=== PATIENT | male | born 1945 | race Caucasian/White ===

== ENCOUNTER 2024-07-04 06:44 | Emergency (ER) | payer OTHER, SELFPAY ==
[2024-07-04 07:00] LABS: Absolute Eosinophils 0.3 K/uL (0-0.5); Absolute Lymphocytes (CBC) 1.5 K/uL (0.7-4.9); Absolute Monocytes 0.5 K/uL (0.1-1.3); Absolute Neutrophil 3.7 K/uL (1.8-8.0); Basophils % 0.2 % (0-1.3); Eosinophils % 5.1 % (0-4.4); Hematocrit 39.2 % (39.6-49.0); Hemoglobin 12.8 g/dL (13.6-17.9); Lymphocytes % 24.6 % (15.3-44.8); MCH 30.3 pg (27.0-35.0); MCHC 32.7 g/dL (32.0-36.0); MCV 92.7 fL (80-100); MPV 9.7 fL (7.6-11.3); Monocytes % 8.5 % (3.3-12.3); Neutrophils % 61.6 % (41.7-73.7); Platelets 231 thou/uL (152-406); RBC Red Blood Cell Count 4.23 M/uL (4.33-5.43); Red Cell Distribution Width 13.2 % (12.1-15.2)
[2024-07-04 07:06] LABS: PTT, Activated Partial Thromb 38.1 SECONDS (24.3-36.9); Protime INR 0.98
[2024-07-04] MEDS ORDERED: TENECTEPLASE 50 MG/10 ML VIAL IV ONE (07:13)
[2024-07-04 07:21] LABS: Albumin 3.6 g/dL (3.4-5.0); Anion Gap 6.5 mEq/L (5.0-15.0); Bilirubin Direct 0.2 mg/dL (0-0.2); Bilirubin Indirect, Calculated 0.3 mg/dL (0.2-0.8); Bilirubin Total 0.5 mg/dL (0.2-1.0); Globulin 3.6 g/dL (2.3-3.5); Magnesium 2.1 mg/dL (1.6-2.4); Potassium 3.5 mEq/L (3.5-5.1); Protein, Total 7.2 g/dL (6.4-8.2); Troponin High Sensitivity 6.2 pg/mL (<58.9)
--- NOTE | 2024-07-04 07:28 | RAD REPORT ---
CT HEAD WITHOUT IV CONTRAST INDICATION: STROKE ALERT. COMPARISON: None TECHNIQUE: CT images of the head were obtained without contrast. Multiplanar reformats were provided. Dose lowering techniques such as automated exposure control, iterative reconstruction, and mA and/or kV adjustment for patient size was utilized for this examination. FINDINGS: VENTRICLES: Normal in size for patient's age. EXTRA-AXIAL: No focal collection. Patent basilar cisterns. ORBITS: Unremarkable. BONES: No acute finding. PARANASAL SINUSES/MASTOIDS/MIDDLE EARS: Clear. SOFT TISSUES: No acute findings. OTHER: None. IMPRESSION: No acute intracranial abnormality. Electronically signed by: Chrissy Lucas MD 07/04/2024 07:24 AM CDT RP Due to temporary technical issues with the PACS/[employer] reporting system, reports are being radha d by the in-house radiologist without review as a courtesy to ensure prompt reporting the interpreting radiologist is fully responsible for the content of the report. Transcribed Date/Time: 07/04/2024 7:27 AM
[2024-07-04] MEDS ORDERED: FOLIC ACID 5 MG/ML VIAL ONE (07:30)
[2024-07-04] MEDS ORDERED: NA CHLORIDE 0.9% 1,000 ML ONE (07:30)
--- NOTE | 2024-07-04 07:31 | RAD REPORT ---
EXAMINATION: ONE VIEW CHEST XR CLINICAL INDICATION: cva TECHNIQUE: Frontal chest projection is submitted. Examination is limited by patient positioning and t echnique. COMPARISON: No prior exam. FINDINGS: The lungs are well inflated and clear. The heart is normal in size. No displaced fractures identified . IMPRESSION: No acute intrathoracic abnormalities.
--- NOTE | 2024-07-04 07:34 | EDPHYS ---
Physician Documentation [facility] Name: Domingo Sheridan Age: 79 yrs Sex: Male : 1945 Arrival Date: 07/04/2024 Time: 06:44 Bed 2 Private MD: ED Physician Narayan Sargent HPI: 07/04 06:50 This 76 yrs old Male presents to ER via Unassigned with complaints of CVA. rt 06:50 Patient presents to the ED with concerns for acute CVA. Patient woke up at 4 this rt morning, had no neurologic deficits. Subsequent back to bed, woke up at about 530 and noted that he had total paralysis of the right arm as well as a facial droop. Denies other acute complaints at this time. Denies other aggravating relieving factors, symptoms are moderate in severity. Historical: - Allergies: 07:03 No Known Allergies; bm8 - Home Meds: 07:03 Lisinopril Oral [Active]; bm8 - PMHx: 07:03 Hypertensive disorder; TIA; bm8 - Immunization history:: Adult Immunizations up to date. - Infectious Disease History:: Denies. - Social history:: Smoking status: Patient denies any tobacco usage or history of. ROS: 06:50 Constitutional: Negative for fever, chills, and weight loss, Cardiovascular: Negative rt for chest pain, palpitations, and edema, Respiratory: Negative for shortness of breath, cough, wheezing, and pleuritic chest pain, Abdomen/GI: Negative for abdominal pain, nausea, vomiting, diarrhea, and constipation, Skin: Negative for injury, rash, and discoloration, 06:50 Neuro: Positive for weakness, Negative for loss of consciousness, numbness, Exam: 06:50 Constitutional: This is a well developed, well nourished patient who is awake, alert, rt and in no acute distress. Head/Face: Normocephalic, atraumatic. Chest/axilla: Normal chest wall appearance and motion. Nontender with no deformity. No lesions are appreciated. Cardiovascular: Regular rate and rhythm with a normal S1 and S2. No gallops, murmurs, or rubs. Normal PMI, no JVD. No pulse deficits. Respiratory: Lungs have equal breath sounds bilaterally, clear to auscultation and percussion. No rales, rhonchi or wheezes noted. No increased work of breathing, no retractions or nasal flaring. Abdomen/GI: Soft, non-tender, with normal bowel sounds. No distension or tympany. No guarding or rebound. No evidence of tenderness throughout. Skin: Warm, dry with normal turgor. Normal color with no rashes, no lesions, and no evidence of cellulitis. MS/ Extremity: Pulses equal, no cyanosis. Neurovascular intact. Full, normal range of motion. 06:50 Neuro: Speech normal, right-sided facial droop, no other cranial nerve deficits, paralysis of the right upper extremity, sensation is intact, no other weakness, numbness noted, 07:04 ECG was reviewed by the Attending Physician. rt Vital Signs: 06:45 BP 140 / 96; Pulse 70; Resp 13; Temp 97.8; Pulse Ox 98% on R/A; Weight 112.49 kg; bm8 Height 6 ft. 1 in. ; Pain 0/10; 07:30 BP 165 / 92; Pulse 71; Resp 18; Pulse Ox 98% on R/A; ph 08:02 BP 154 / 92; Pulse 64; Resp 18; Pulse Ox 98% on R/A; ph 08:30 BP 143 / 94; Pulse 68; Resp 18; Pulse Ox 99% on R/A; ph 09:00 BP 137 / 96; Pulse 69; Resp 18; Temp 97.5; Pulse Ox 98% on R/A; ph 06:45 Body Mass Index 32.72 (112.49 kg, 185.42 cm) bm8 06:45 Pain Scale: Adult bm8 NIH Stroke Scale Scores: 07:05 NIHSS Score: 2 ph 07:29 NIHSS Score: 4 taran 07:59 NIHSS Score: 2 ph Elmo Coma Score: 07:29 Eye Response: spontaneous(4). Motor Response: obeys commands(6). Verbal Response: taran oriented(5). Total: 15. MDM: 06:49 Patient medically screened. rt 07:06 Differential diagnosis: CVA, TIA, intracranial hemorrhage. Data reviewed: vital signs, rt nurses notes. I considered the following discharge prescriptions or medication management in the emergency department Medications were administered in the Emergency Department. See MAR. Independent interpretation of the following test(s) in the Emergency Department CT Scan: My interpretation is No intracranial hemorrhage seen on my interpretation of CT scan images. Care significantly affected by the following chronic conditions: Hypertension. Counseling: I had a detailed discussion with the patient and/or guardian regarding the historical points, exam findings, and any diagnostic results supporting the discharge/admit diagnosis, lab results, radiology results. ED course: TNKase was delayed due to delay in reporting of CT scan results. 07/04 06:49 Order name: Basic Metabolic Panel; Complete Time: 07:25 rt 07/04 06:49 Order name: CBC with Diff; Complete Time: 07:21 rt 07/04 06:49 Order name: Hepatic Function; Complete Time: 07:25 rt 07/04 06:49 Order name: High Sensitivity Troponin; Complete Time: 07:25 rt 07/04 06:49 Order name: Magnesium; Complete Time: 07:25 rt 07/04 06:49 Order name: Protime (+inr); Complete Time: 07:21 rt 07/04 06:49 Order name: Ptt, Activated; Complete Time: 07:21 rt 07/04 06:52 Order name: glucometer results - FOR PT WITH NO ID; Complete Time: 07:52 bm8 07/04 06:49 Order name: CT Neck Angio; Complete Time: 08:02 rt 07/04 06:49 Order name: CT Stroke Brain w/o Contrast; Complete Time: 07:52 rt 07/04 06:49 Order name: Stroke CXR 1 View; Complete Time: 07:52 rt 07/04 06:59 Order name: Head angio; Complete Time: 07:52 EDMS 07/04 06:49 Order name: Accucheck; Complete Time: 06:53 rt 07/04 06:49 Order name: Cardiac monitoring; Complete Time: 06:53 rt 07/04 06:49 Order name: EKG - Nurse/Tech; Complete Time: 06:53 rt 07/04 06:49 Order name: IV Saline Lock; Complete Time: 06:53 rt 07/04 06:49 Order name: Labs collected and sent; Complete Time: 06:53 rt 07/04 06:49 Order name: NPO; Complete Time: 06:53 rt 07/04 06:49 Order name: O2 Per Protocol; Complete Time: 06:53 rt 07/04 06:49 Order name: O2 Sat Monitoring; Complete Time: 06:53 rt 07/04 06:49 Order name: Stroke Swallow Screen; Complete Time: 07:06 rt EC:04 Rate is 82 beats/min. 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 Left axis deviation noted. CO interval is prolonged at 222 msec. QRS interval is normal. QT interval is normal. No Q waves. No ST changes noted. Interpreted by me. Administered Medications: 07:15 Drug: TNK FOR STROKE - Tenecteplase IV (Administer 10 ml NS flush BEFORE and bm8 AFTER tenecteplase) 25 mg IV at per protocol once; 0.25mg/kg, MAX DOSE 25 mg, IVP over 5 seconds {Co-Signature: lg3 (Loren Avendaño RN).} Route: IV; Rate: per protocol; Site: left antecubital; 07:20 Follow up: Response: No adverse reaction; IV Status: Completed infusion ph 08:01 Drug: foLIC Acid IVPB 1 mg IVPB once Route: IVPB; Site: right antecubital; ph 09:13 Follow up: Response: No adverse reaction; IV Status: Completed infusion ph 08:01 Drug: NS 0.9% IV 1000 ml IV at 1 bolus Per protocol; 1000 mL bolus Route: IV; Rate: 1 ph bolus; Site: right antecubital; 09:13 Follow up: Response: No adverse reaction; IV Status: Completed infusion; IV Intake: ph 1000ml Point of Care Testing: Blood Glucose: 06:36 Blood Glucose: 145 mg/dL; bm8 Ranges: Critical Glucose Levels:Adult <50 mg/dl or >400 mg/dl <40 mg/dl or >180 mg/dl Disposition Summary: 07/04/24 07:34 Transfer Ordered Notes: Transfer Location: [facility] taran Reason: Higher level of care taran Condition: Fair taran Problem: new taran Symptoms: have improved taran Accepting Physician: to [facility](07/04/24 09:16) ph Diagnosis - Essential (primary) hypertension taran - Cerebral infarction, unspecified - acute taran Forms: - Medication Reconciliation Form taran - SBAR form taran NIH Stroke Scale - NIH Stroke Score Date: 07/04/2024 Time: 07:05 Total Score = 2 10. Dysarthria (speech clarity - read or repeat words) - 0(Normal) 11. Extinction and Inattention (visual/tactile/auditory/spatial/personal) - 0(No abnormality) 1a. Level of Consciousness (LOC) - 0(Alert) 1b. Level of Consciousness (LOC) (Month \T\ Age) - 0(Both) 1c. LOC Commands (Open \T\ Closes Eyes/Road Roller Operator Hot Mix) - 0(Both) 2. Best Gaze (Lateral Gaze Paresis) - 0(Normal) 3. Visual Field Loss - 0(No visual loss) 4. Facial Palsy - 1(Minor Paralysis) 5a. Left Arm: Motor (10-second hold) - 0(No drift) 5b. Right Arm: Motor (10-second hold) - 1(Drift) 6a. Left Leg: Motor (5-second hold - always test supine) - 0(No drift) 6b. Right Leg: Motor (5-second hold - always test supine) - 0(No drift) 7. Limb Ataxia (finger/nose \T\ heel/kelley - test with eyes open) - 0(Absent) 8. Sensory Loss (pinprick arms/legs/face) - 0(Normal) 9. Best Language: Aphasia (description/naming/reading) - 0(No aphasia) Initials: NIH Stroke Scale - NIH Stroke Score Date: 07/04/2024 Time: 07:29 Total Score = 4 10. Dysarthria (speech clarity - read or repeat words) - 0(Normal) 11. Extinction and Inattention (visual/tactile/auditory/spatial/personal) - 0(No abnormality) 1a. Level of Consciousness (LOC) - 0(Alert) 1b. Level of Consciousness (LOC) (Month \T\ Age) - 0(Both) 1c. LOC Commands (Open \T\ Closes Eyes/Road Roller Operator Hot Mix) - 0(Both) 2. Best Gaze (Lateral Gaze Paresis) - 0(Normal) 3. Visual Field Loss - 0(No visual loss) 4. Facial Palsy - 0(Normal) 5a. Left Arm: Motor (10-second hold) - 0(No drift) 5b. Right Arm: Motor (10-second hold) - 3(No effort against gravity) 6a. Left Leg: Motor (5-second hold - always test supine) - 0(No drift) 6b. Right Leg: Motor (5-second hold - always test supine) - 0(No drift) 7. Limb Ataxia (finger/nose \T\ heel/kelley - test with eyes open) - 1(Present in one limb) 8. Sensory Loss (pinprick arms/legs/face) - 0(Normal) 9. Best Language: Aphasia (description/naming/reading) - 0(No aphasia) Initials: taran NIH Stroke Scale - NIH Stroke Score Date: 07/04/2024 Time: 07:59 Total Score = 2 10. Dysarthria (speech clarity - read or repeat words) - 0(Normal) 11. Extinction and Inattention (visual/tactile/auditory/spatial/personal) - 0(No abnormality) 1a. Level of Consciousness (LOC) - 0(Alert) 1b. Level of Consciousness (LOC) (Month \T\ Age) - 0(Both) 1c. LOC Commands (Open \T\ Closes Eyes/Road Roller Operator Hot Mix) - 0(Both) 2. Best Gaze (Lateral Gaze Paresis) - 0(Normal) 3. Visual Field Loss - 0(No visual loss) 4. Facial Palsy - 1(Minor Paralysis) 5a. Left Arm: Motor (10-second hold) - 0(No drift) 5b. Right Arm: Motor (10-second hold) - 1(Drift) 6a. Left Leg: Motor (5-second hold - always test supine) - 0(No drift) 6b. Right Leg: Motor (5-second hold - always test supine) - 0(No drift) 7. Limb Ataxia (finger/nose \T\ heel/kelley - test with eyes open) - 0(Absent) 8. Sensory Loss (pinprick arms/legs/face) - 0(Normal) 9. Best Language: Aphasia (description/naming/reading) - 0(No aphasia) Initials: ph Signatures: Dispatcher [employer] EDMS Narayan Sargent MD MD cha Hall, Patricia RN RN Jimi Canchola MD MD rt Stalin Ramirez, RN RN [id number] Loren Avendaño RN [id number] Corrections: (The following items were deleted from the chart) 06:49 06:49 BASIC METABOLIC PANEL+C.LAB.BRZ ordered. EDMS EDMS 06:49 06:49 CBC+H.LAB.BRZ ordered. EDMS EDMS 06:49 06:49 HEPATIC FUNCTION+C.LAB.BRZ ordered. EDMS EDMS 06:49 06:49 Troponin High Sensitivity+C.LAB.BRZ ordered. EDMS EDMS 06:49 06:49 MAGNESIUM+C.LAB.BRZ ordered. EDMS EDMS 06:49 06:49 PROTIME (+INR)+COAG.LAB.BRZ ordered. EDMS EDMS 06:49 06:49 PTT, ACTIVATED+COAG.LAB.BRZ ordered. EDMS EDMS 06:50 06:50 Neck Angio+CT.RAD.BRZ ordered. EDMS EDMS 06:50 06:50 CT-STROKE BRAIN W/O CONTRAST+CT.RAD.BRZ ordered. EDMS EDMS 06:50 06:50 Chest Single View+RAD.RAD.BRZ ordered. EDMS EDMS 09:16 07:[address] [facility] ph
--- NOTE | 2024-07-04 07:34 | ER ---
Nurse's Notes [facility] Name: Domingo Sheridan Age: 79 yrs Sex: Male : 1945 Arrival Date: 07/04/2024 Time: 06:44 Bed 2 Private MD: Diagnosis: Essential (primary) hypertension;Cerebral infarction, unspecified-acute Presentation: 07/04 06:36 Chief complaint: Patient states: I woke up and had weakness on my right side. bm8 Coronavirus screen: At this time, the client does not indicate any symptoms associated with coronavirus-19. Ebola Screen: Patient negative for fever greater than or equal to 101.5 degrees Fahrenheit, and additional compatible Ebola Virus Disease symptoms Patient denies exposure to infectious person. Patient denies travel to an Ebola-affected area in the 21 days before illness onset. No symptoms or risks identified at this time. An acute neurological deficit is present. The charge nurse has been notified. The patients blood glucose was checked before arriving to the hospital and was found to be normal. Initial Sepsis Screen: Does the patient meet any 2 criteria? No. Patient's initial sepsis screen is negative. Does the patient have a suspected source of infection? No. Patient's initial sepsis screen is negative. Risk Assessment: Do you want to hurt yourself or someone else? Patient reports no desire to harm self or others. Onset of symptoms was July 04, 2024 at 05:30. 06:36 Method Of Arrival: EMS: [facility]8 06:36 Acuity: KAYLEE 2 bm8 Triage Assessment: 06:36 The onset of the patients symptoms was less than three hours ago. General: Appears in bm8 no apparent distress. comfortable, Behavior is calm, cooperative, appropriate for age. 06:36 Pain: Denies pain. EENT: No deficits noted. No signs and/or symptoms were reported bm8 regarding the EENT system. 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 Full function Speech is normal, Facial droop on right, Pupils are PERRLA, Pupil Size: 3mm Intact Reports weakness in right arm. Cardiovascular: No deficits noted. Denies chest pain, Heart tones S1 S2 present Capillary refill < 3 seconds in bilateral fingers toes Patient's skin is warm and dry. Respiratory: Airway is patent Respiratory effort is even, unlabored, Respiratory pattern is regular, symmetrical, Breath sounds are clear bilaterally. GI: No signs and/or symptoms were reported involving the gastrointestinal system. : No signs and/or symptoms were reported regarding the genitourinary system. Derm: No signs and/or symptoms reported regarding the dermatologic system. Musculoskeletal: Reports weakness in right arm. Stroke Activation: Physician: ED Attending; Name: MEGHAN; Notified At: 06:36; Arrived At: 06:36 Physician: Mid-Level Provider; Name: ; Notified At: 06:36; Arrived At: Physician: [not used]; Name: ; Notified At: ; Arrived At: Physician: [not used]; Name: ; Notified At: ; Arrived At: Physician: [not used]; Name: ; Notified At: ; Arrived At: Historical: - Allergies: 07:03 No Known Allergies; bm8 - Home Meds: 07:03 Lisinopril Oral [Active]; bm8 - PMHx: 07:03 Hypertensive disorder; TIA; bm8 - Immunization history:: Adult Immunizations up to date. - Infectious Disease History:: Denies. - Social history:: Smoking status: Patient denies any tobacco usage or history of. Screenin:55 [place] Swallow Protocol Exclusion Criteria: Unable to remain alert for testing: No NPO bm8 for medical/surgical reason by provider order No Head-of-bed restricted <30 degrees Tracheostomy tube present No No thin liquids due to preexisting dysphagia/baseline modified diet thickened liquids No Exclusion Criteria Result: Proceed Brief Cognitive Screen What is your name? Normal, Where are you right now? Normal, What year is it? Normal. Oral Mechanism Examination Facial Symmetry: Normal, Motion: Normal, Lip Closure: Normal, Oral Mechanism Result: Normal. 07:07 Leigh Ann Swallow Protocol Exclusion Criteria: Exclusion Criteria Result: Proceed Brief vc1 Cognitive Screen What is your name? Normal, Where are you right now? Normal, What year is it? Normal. Oral Mechanism Examination Facial Symmetry: Normal, Motion: Normal, Lip Closure: Normal, Oral Mechanism Result: Normal. 3 oz Water Swallow Challenge: Pt able to drink all water without stopping, coughing, choking or throat clearing: Yes Result: PASS Notified: Jimi Ferrell MD. 07:07 [facility] ED Fall Risk Assessment (Adult) History of falling in the last 3 months, bm8 including since admission No falls in past 3 months (0 pts) Confusion or Disorientation No (0 pts) Intoxicated or Sedated No (0 pts) Impaired Gait No (0 pts) Mobility Assist Device Used No (0 pt) Altered Elimination No (0 pt) Score/Fall Risk Level 0 - 2 = Low Risk Oriented to surroundings, Maintained a safe environment, Educated pt \T\ family on fall prevention, incl call for assistance when getting out of bed, Assessed \T\ reinforced patient's understanding of fall precautions, Hourly rounding (assess needs \T\ fall precautionary measures) done, Used ambulatory aids as needed (educated on \T\ assisted with), Used gait belt as appropriate. Abuse screen: Denies threats or abuse. Nutritional screening: No deficits noted. Tuberculosis screening: No symptoms or risk factors identified. VAN Screening: Arm Drift: Minor drift. Visual Disturbance: No visual disturbance noted. Aphasia: No aphasia noted. Neglect: No neglect noted. Assessment: 07:05 VAN Scoring: Arm Drift: Minor drift Visual Disturbance: No visual disturbance noted. ph Aphasia: No aphasia noted. Neglect: No neglect noted. General: Appears in no apparent distress. comfortable, well groomed, Behavior is calm, cooperative, appropriate for age. Pain: Denies pain. Neuro: Level of Consciousness is awake, alert, obeys commands, Oriented to person, place, time, situation, Commodity Specialist are weak on right Speech is normal, Facial droop on right. Cardiovascular: Capillary refill < 3 seconds in bilateral fingers Patient's skin is warm and dry. Rhythm is sinus rhythm. Respiratory: Airway is patent Respiratory effort is even, unlabored. Derm: Skin is pink, warm \T\ dry. 08:26 Reassessment: Report called to ROSITA Arenas at [facility]. 09:11 Reassessment: Patient appears in no apparent distress at this time. Patient and/or ph family updated on plan of care and expected duration. Pain level reassessed. Patient is alert, oriented x 3, equal unlabored respirations, skin warm/dry/pink. [facility] at bedside, report given to Jose PIERSON-P, pt transferred to [facility]. Vital Signs: 06:45 BP 140 / 96; Pulse 70; Resp 13; Temp 97.8; Pulse Ox 98% on R/A; Weight 112.49 kg; bm8 Height 6 ft. 1 in. ; Pain 0/10; 07:30 BP 165 / 92; Pulse 71; Resp 18; Pulse Ox 98% on R/A; ph 08:02 BP 154 / 92; Pulse 64; Resp 18; Pulse Ox 98% on R/A; ph 08:30 BP 143 / 94; Pulse 68; Resp 18; Pulse Ox 99% on R/A; ph 09:00 BP 137 / 96; Pulse 69; Resp 18; Temp 97.5; Pulse Ox 98% on R/A; ph 06:45 Body Mass Index 32.72 (112.49 kg, 185.42 cm) bm8 06:45 Pain Scale: Adult bm8 Stafford Coma Score: 07:29 Eye Response: spontaneous(4). Motor Response: obeys commands(6). Verbal Response: taran oriented(5). Total: 15. NIH Stroke Scale Scores: 07:05 NIHSS Score: 2 ph 07:29 NIHSS Score: 4 taran 07:59 NIHSS Score: 2 ph ED Course: 06:36 Arm band placed on right wrist. bm8 06:49 Patient arrived in ED. bm8 06:49 Jimi Ferrell MD is Attending Physician. rt 06:52 Initial lab(s) drawn, by ED staff, sent to lab. Inserted saline lock: 20 gauge in left lg3 antecubital area, using aseptic technique. Blood collected. 06:55 Inserted saline lock: 20 gauge in right antecubital area, using aseptic technique. lg3 06:55 No provider procedures requiring assistance completed. Patient maintains SpO2 bm8 saturation greater than 95% on room air. 06:55 Patient has correct armband on for positive identification. Placed in gown. Bed in low bm8 position. Call light in reach. Side rails up X2. Client placed on continuous cardiac and pulse oximetry monitoring. NIBP monitoring applied. patient monitor on. Pulse ox on. NIBP on. Door closed. Noise minimized. Warm blanket given. Pillow given. Verbal reassurance given. Head of bed elevated. 06:57 CT Stroke Brain w/o Contrast In Process Unspecified. EDMS 07:00 Stalin Ramirez, RN is Primary Nurse. bm8 07:03 Triage completed. bm8 07:15 Report given to ROSITA SCHMIDT. bm8 07:17 Stroke CXR 1 View In Process Unspecified. EDMS 07:18 pt accepted in transfer to [facility] by dr garcia admin approval given by pranav Fatima pt going to rm 7 [address] 4 rm [id number]. 07:21 Attending Physician role handed off by Jimi Ferrell MD taran 07:21 Narayan Sargent MD is Attending Physician. taran 07:22 initiated transfer to [facility]. bd 07:[address] via stretcher. db 07:42 CT Neck Angio In Process Unspecified. EDMS 07:42 Head angio In Process Unspecified. EDMS 08:[address] [facility] will transport pt. bd 09:13 Patient transferred, IV remains in place. ph Administered Medications: 07:15 Drug: TNK FOR STROKE - Tenecteplase IV (Administer 10 ml NS flush BEFORE and bm8 AFTER tenecteplase) 25 mg IV at per protocol once; 0.25mg/kg, MAX DOSE 25 mg, IVP over 5 seconds {Co-Signature: lg3 (Loren Avendaño RN).} Route: IV; Rate: per protocol; Site: left antecubital; 07:20 Follow up: Response: No adverse reaction; IV Status: Completed infusion ph 08:01 Drug: foLIC Acid IVPB 1 mg IVPB once Route: IVPB; Site: right antecubital; ph 09:13 Follow up: Response: No adverse reaction; IV Status: Completed infusion ph 08:01 Drug: NS 0.9% IV 1000 ml IV at 1 bolus Per protocol; 1000 mL bolus Route: IV; Rate: 1 ph bolus; Site: right antecubital; 09:13 Follow up: Response: No adverse reaction; IV Status: Completed infusion; IV Intake: ph 1000ml Medication: 07:07 VIS not applicable for this client. bm8 Point of Care Testing: Blood Glucose: 06:36 Blood Glucose: 145 mg/dL; bm8 Ranges: Intake: 09:13 IV: 1000ml; Total: 1000ml. ph Outcome: 07:34 ER care complete, transfer ordered by . taran 09:12 Transferred by ground EMS [place]. ph 09:12 Condition: stable 09:12 Instructed on the need for transfer, 09:16 Patient left the ED. NIH Stroke Scale - NIH Stroke Score Date: 07/04/2024 Time: 07:05 Total Score = 2 10. Dysarthria (speech clarity - read or repeat words) - 0(Normal) 11. Extinction and Inattention (visual/tactile/auditory/spatial/personal) - 0(No abnormality) 1a. Level of Consciousness (LOC) - 0(Alert) 1b. Level of Consciousness (LOC) (Month \T\ Age) - 0(Both) 1c. LOC Commands (Open \T\ Closes Eyes/Inspector Sheet Metal Parts) - 0(Both) 2. Best Gaze (Lateral Gaze Paresis) - 0(Normal) 3. Visual Field Loss - 0(No visual loss) 4. Facial Palsy - 1(Minor Paralysis) 5a. Left Arm: Motor (10-second hold) - 0(No drift) 5b. Right Arm: Motor (10-second hold) - 1(Drift) 6a. Left Leg: Motor (5-second hold - always test supine) - 0(No drift) 6b. Right Leg: Motor (5-second hold - always test supine) - 0(No drift) 7. Limb Ataxia (finger/nose \T\ heel/kelley - test with eyes open) - 0(Absent) 8. Sensory Loss (pinprick arms/legs/face) - 0(Normal) 9. Best Language: Aphasia (description/naming/reading) - 0(No aphasia) Initials: NIH Stroke Scale - NIH Stroke Score Date: 07/04/2024 Time: 07:29 Total Score = 4 10. Dysarthria (speech clarity - read or repeat words) - 0(Normal) 11. Extinction and Inattention (visual/tactile/auditory/spatial/personal) - 0(No abnormality) 1a. Level of Consciousness (LOC) - 0(Alert) 1b. Level of Consciousness (LOC) (Month \T\ Age) - 0(Both) 1c. LOC Commands (Open \T\ Closes Eyes/Inspector Sheet Metal Parts) - 0(Both) 2. Best Gaze (Lateral Gaze Paresis) - 0(Normal) 3. Visual Field Loss - 0(No visual loss) 4. Facial Palsy - 0(Normal) 5a. Left Arm: Motor (10-second hold) - 0(No drift) 5b. Right Arm: Motor (10-second hold) - 3(No effort against gravity) 6a. Left Leg: Motor (5-second hold - always test supine) - 0(No drift) 6b. Right Leg: Motor (5-second hold - always test supine) - 0(No drift) 7. Limb Ataxia (finger/nose \T\ heel/kelley - test with eyes open) - 1(Present in one limb) 8. Sensory Loss (pinprick arms/legs/face) - 0(Normal) 9. Best Language: Aphasia (description/naming/reading) - 0(No aphasia) Initials: [facility] NIH Stroke Scale - NIH Stroke Score Date: 07/04/2024 Time: 07:59 Total Score = 2 10. Dysarthria (speech clarity - read or repeat words) - 0(Normal) 11. Extinction and Inattention (visual/tactile/auditory/spatial/personal) - 0(No abnormality) 1a. Level of Consciousness (LOC) - 0(Alert) 1b. Level of Consciousness (LOC) (Month \T\ Age) - 0(Both) 1c. LOC Commands (Open \T\ Closes Eyes/Inspector Sheet Metal Parts) - 0(Both) 2. Best Gaze (Lateral Gaze Paresis) - 0(Normal) 3. Visual Field Loss - 0(No visual loss) 4. Facial Palsy - 1(Minor Paralysis) 5a. Left Arm: Motor (10-second hold) - 0(No drift) 5b. Right Arm: Motor (10-second hold) - 1(Drift) 6a. Left Leg: Motor (5-second hold - always test supine) - 0(No drift) 6b. Right Leg: Motor (5-second hold - always test supine) - 0(No drift) 7. Limb Ataxia (finger/nose \T\ heel/kelley - test with eyes open) - 0(Absent) 8. Sensory Loss (pinprick arms/legs/face) - 0(Normal) 9. Best Language: Aphasia (description/naming/reading) - 0(No aphasia) Initials: ph Signatures: Dispatcher [employer] Anastacia Castañeda Corey, MD MD cha Hall, Patricia, RN RN ph Able, ROSITA Pimentel RN lg3 Laurel Keen RN RN vc1 Angela Carter RN RN db Jimi Ferrell MD MD rt Stalin Ramirez RN RN bm8 Loren Avendaño RN lg3 Corrections: (The following items were deleted from the chart) 07: 07:22 Report given to ROSITA SCHMIDT ph ph 08: 07:07 NIHSS Score: 2 bm8 ph 08: 07:20 NIHSS Score: 2 ph ph 09:13 09:13 IV Status: Completed infusion ph ph
--- NOTE | 2024-07-04 07:48 | RAD REPORT ---
EXAMINATION: CTA HEAD CLINICAL INDICATION: CVA TECHNIQUE: Axial CT images were obtained through the head after intravenous contrast utilizing angiog raphic protocol with 3D post-processing (maximum intensity projection images, volume rendered images and/or shaded surface rendered images). One or more of the following dose reduction technique s were used: Automated exposure control, adjustment of the mA and/or kV according to patient size, and/or iterative reconstruction. Unless otherwise specified, incidental findings do not require dedic ated imaging follow-up. COMPARISON: No prior exam. FINDINGS: ICA: The petrous, cavernous, and supraclinoid segments of the bilateral internal carotid arteries are normal. The ophthalmic artery origins are visualized and normal. The posterior communicating arteries are patent. LUIS ALBERTO: Anterior cerebral arteries are normal bilaterally. The anterior communicating artery is patent. MCA: Middle cerebral arteries are normal bilaterally. CROWN WHEEL ASSEMBLER: Posterior cerebral arteries are normal bilaterally. Vertebrobasilar: The vertebral arteries are patent. The basilar artery is normal in appearance. 3D images confirm these findings. IMPRESSION: No significant flow abnormality is identified.
--- NOTE | 2024-07-04 07:52 | RAD REPORT ---
EXAMINATION: CTA NECK CLINICAL INDICATION: cva TECHNIQUE: Axial CT images were obtained from the aortic arch to the skull base after intravenous con trast utilizing angiographic protocol with 3D post-processing (maximum intensity projection images, volume rendered images and/or shaded surface rendered images). One or more of the following dose redu ction techniques were used: Automated exposure control, adjustment of the mA and/or kV according to patient size, and/or iterative reconstruction. Unless otherwise specified, incidental findings do not require dedicated imaging follow-up. COMPARISON: No prior exam. FINDINGS: AORTA: The imaged aortic arch is normal. CCA: The common carotid arteries are patent and normal in caliber. ICA/ECA: Hard plaquing is present involving both proximal internal carotid arteries, greater on the r ight. The post bulbar right proximal ICA demonstrates mild stenosis estimated at 50%. Proximal left internal carotid artery demonstrates luminal narrowing of 50% or less. VERTEBRAL: The cervical vertebral arteries are patent. The vertebral arteries are codominant. SOFT TISSUE: Several large calculi are present left submandibular gland which appears atrophic relati ve to the right. The visualized lung apices are clear. 3D images confirm these findings. IMPRESSION: Mild stenosis of both proximal internal carotid artery seen, slightly greater on the right, the resul t of calcified plaquing. Stenosis is 50% or less bilaterally. Several calculi are present left submandibular gland largest measuring 15 mm, with left submandibular gland atrophy also noted. NASCET criteria used. Mild 0-49% stenosis Moderate 50-69% stenosis Severe 70-99% stenosis
[2024-07-04 09:50] VITALS: BP 137/96; TEMP 97.5; O2SAT 98
--- NOTE | 2024-07-05 13:00 | EKG ---
Test Date: 2024-07-04 Test Time: 06:56:45 Alum Operator: LILIANA MEASUREMENT RESULTS: Intervals: Rate: 82 MT: 222 QRSD: 106 QT: 390 QTc: 455 [place]: P: 70 MT: 222 QRS: -26 T: 63 INTERPRETIVE STATEMENTS: Sinus rhythm with 1st degree AV block Incomplete right bundle branch block Borderline ECG No previous ECG available for comparison Electronically Signed On 07-05-24 12:55:23 CDT by John Flores
== END 2024-07-04 09:16 | disposition short-term general hospital (02) ==
LOC: ER 06:44 → EDBD 06:44 → ER 09:16
DX: I63.9 Cerebral infarction, unspecified (principal); I10 Essential (primary) hypertension; R29.704 NIHSS score 4; Z86.73 Personal history of transient ischemic attack (TIA), and cerebral infarction without residual deficits
CPT/HCPCS: 96365; 92977; 93005; 85025; 80048; 36415; 83735; 85610; 82947; 80076; 85730; 84484; 70496; 70498; 70450; 71045; 96375; 99285; Q9967; J3101; J7030